=== PATIENT | male | born 1990 | race Two or more races ===

== ENCOUNTER 2018-11-10 16:38 | Emergency (ER) | payer MEDICAID ==
[~2018-11-10] VITALS: Ht 182.9 cm; Wt 86.2 kg
[2018-11-10 16:50] VITALS: BP 112/71
== END 2018-11-10 18:49 | disposition left against medical advice (07) ==
LOC: ER 16:40
DX: M79.601 Pain in right arm (principal); Z53.21 Procedure and treatment not carried out due to patient leaving prior to being seen by health care provider
CPT/HCPCS: 73110